=== PATIENT | female | born 2000 | race Hispanic/Latino ===

== ENCOUNTER 2021-02-14 15:00 | Day surgery (SDC) | payer OTHER ==
[2021-02-14 15:35] VITALS: BMI 29.2
[2021-02-14] MEDS ORDERED: hydrALAZINE 20 MG/ML VIAL SLOW IVP PRN (16:04)
== END 2021-02-14 16:16 | disposition home or self-care (01) ==
LOC: CSHLD/OP 15:00
PROVIDERS: ATTEND Family Medicine
DX: O26.853 Spotting complicating pregnancy, third trimester (principal); O99.891 Other specified diseases and conditions complicating pregnancy; N89.8 Other specified noninflammatory disorders of vagina; Z3A.36 36 weeks gestation of pregnancy
CPT/HCPCS: 99282

== ENCOUNTER 2021-02-27 11:54 | Inpatient (IN) | payer OTHER ==
[~2021-02-27 11:54] MED LIST: Bupivacaine 0.25% HCL 30 ML VIAL ONE
[2021-02-27 12:25] VITALS: BMI 30.5
[2021-02-27] MEDS ORDERED: hydrALAZINE 20 MG/ML VIAL SLOW IVP PRN ×2 (12:48→14:48)
[2021-02-27] MEDS: Lactated Ringer's 1,000 ML IV SCH ×2 (14:28→23:41)
[2021-02-27] MEDS ORDERED: Methylergonovine 0.2 MG/ML VIAL IM PRN (14:48)
[2021-02-27] MEDS ORDERED: Misoprostol 200 MCG TAB PR PRN (14:48)
[2021-02-27] MEDS ORDERED: Ibuprofen 800 MG TAB PO PRN (14:48)
[2021-02-27] MEDS ORDERED: NS / Oxytocin 40 units/1000ml 1,000 ML IV PRN (14:48)
[2021-02-27] MEDS ORDERED: Promethazine HCl 25 MG/ML VIAL IM PRN (14:48)
[2021-02-27] MEDS ORDERED: Butorphanol Tartrate 1 MG/ML VIAL SLOW IVP PRN (14:48)
[2021-02-27] MEDS ORDERED: Carboprost 250 MCG/ML AMP IM PRN (14:48)
[2021-02-27] MEDS ORDERED: Diphenoxylate HCl/Atropine Tablet PO PRN (14:48)
[2021-02-27] MEDS ORDERED: HYDROcodone/Acetaminophen 5/325 mg Tablet PO PRN (14:48)
[2021-02-27] MEDS ORDERED: Lidocaine 1% (PF) 30 ML VIAL SC PRN (14:48)
[2021-02-27] MEDS ORDERED: Ondansetron PF 4 MG/2 ML Vial IVP PRN (14:48)
[2021-02-27] MEDS ORDERED: Misoprostol 100 MCG TAB ONE (15:16)
[2021-02-27 15:19] LABS: Hemoglobin 10.9 g/dL (12.0-15.5); Mean Corpuscular HGB CONC 32.6 g/dL (32.0-36.0); Mean Corpuscular Hemoglobin 27.2 pg (27.0-33.0); Mean Corpuscular Volume 83.3 fl (81.6-98.3); Mean Platelet Volume 10.8 fl (7.4-10.4); Platelet Count 295 10x3/uL (150-450); RBC Distribution Width 15.2 % (11.5-14.5); Red Blood Cell (RBC) Count 4.01 10x6/uL (3.90-5.03); White Blood Cell (WBC) Count 6.4 10x3/uL (3.5-10.5)
[2021-02-27] MEDS: Misoprostol 100 MCG TAB PO SCH ×2 (15:32→22:37)
[2021-02-27 15:44] LABS: Hep B Surf Ag Non-Reactive S/CO (NonReactive)
[2021-02-27 15:45] LABS: Syphilis Antibody Nonreactive (Nonreactive); Syphilis Antibody Index 0.02 S/CO (<1.00 Non-Reactive)
[2021-02-27 16:07] LABS: HBSAg Index 0.16 S/CO (0-0.99)
[2021-02-27] MEDS ORDERED: Fentanyl 4 mcg/Bup 0.1% Cadd 100 ML ONE (22:53)
[2021-02-27] MEDS ORDERED: Fentanyl 100 MCG/2 ML VIAL ONE (23:22)
[2021-02-28 01:16] LABS: SARS-CoV-2 PCR by NAA Not Detected (NotDetected)
[2021-02-28] MEDS ORDERED: NS w/ Oxytocin 30 units 500 ML ONE ×2 (02:11→07:34)
[2021-02-28] MEDS ORDERED: Eucerin (Mineral Oil/Petrolatum,White) 30 gm Jar TOP PRN (02:17)
[2021-02-28] MEDS ORDERED: Ondansetron PF 4 MG/2 ML Vial IVP PRN ×2 (02:17→08:59)
[2021-02-28] MEDS ORDERED: ePHEDrine 50 MG/ML VIAL SLOW IVP PRN (02:17)
[2021-02-28] MEDS ORDERED: Promethazine HCl 25 MG/ML VIAL IM PRN ×2 (02:17→08:59)
[2021-02-28] MEDS ORDERED: Lactated Ringer's 500 ML IV PRN (02:17)
[2021-02-28] MEDS ORDERED: Acetaminophen 325 MG TAB PO PRN (02:17)
[2021-02-28] MEDS ORDERED: Naloxone HCl 0.4 mg/ml Vial IVP PRN ×2 (02:17)
[2021-02-28] MEDS ORDERED: diphenhydrAMINE 50 MG/ML VIAL IVP PRN (02:17)
[2021-02-28] MEDS ORDERED: Communication Order-Pharmacy FS SCH (02:30)
[2021-02-28] MEDS ORDERED: Fentanyl 4 mcg/Bupivacaine 0.1% Cassette 100 ML EPIDURAL SCH (02:30)
[2021-02-28] MEDS ORDERED: hydrALAZINE 20 MG/ML VIAL SLOW IVP PRN (08:59)
[2021-02-28] MEDS ORDERED: diphenhydrAMINE 25 MG CAP PO PRN (08:59)
[2021-02-28] MEDS ORDERED: Bisacodyl 10 MG SUPP PR PRN (08:59)
[2021-02-28] MEDS ORDERED: Adacel (T-DAP) 0.5 ML SYRINGE IM ONE (08:59)
[2021-02-28] MEDS ORDERED: Milk Of Magnesia 30 ML UDCUP PO PRN (08:59)
[2021-02-28] MEDS ORDERED: HYDROcodone/Acetaminophen 5/325 mg Tablet PO PRN ×2 (08:59)
[2021-02-28] MEDS ORDERED: NS w/ Oxytocin 30 units 500 ML IVPB SCH ×2 (09:00→09:30)
[2021-02-28] MEDS ORDERED: Ferrous Sulfate 325 MG TAB PO SCH (09:30)
[2021-02-28] MEDS ORDERED: Boostrix 0.5 ML (Tdap) VIAL IM ONE (09:30)
[2021-02-28] MEDS: Ibuprofen 800 MG TAB PO SCH ×2 (14:08→22:10)
[2021-02-28] MEDS: Prenatal Vitamin 1 TAB PO SCH (14:10)
[2021-02-28] MEDS: Docusate Calcium (SURFAK) 240 MG CAP PO SCH ×2 (14:10→22:10)
[2021-02-28] MEDS: Ferrous Sulfate 325 MG TAB PO SCH (18:35)
[2021-03-01] MEDS: Ibuprofen 800 MG TAB PO SCH (05:48)
[2021-03-01 07:51] VITALS: BP 117/82; TEMP 98.3
[2021-03-01] MEDS: NS w/ Oxytocin 30 units 500 ML IVPB SCH ×3 (08:27→08:29)
[2021-03-01] MEDS: Ferrous Sulfate 325 MG TAB PO SCH (08:30)
[2021-03-01] MEDS: Docusate Calcium (SURFAK) 240 MG CAP PO SCH (08:46)
[2021-03-01] MEDS: Prenatal Vitamin 1 TAB PO SCH (08:46)
[2021-03-01] MEDS: Misoprostol 100 MCG TAB PO SCH (08:48)
[2021-03-01] MEDS: Lactated Ringer's 1,000 ML IV SCH (08:48)
== END 2021-03-01 13:45 | disposition home or self-care (01) | DRG 806 ==
LOC: CSHLD/OP 11:54 → CSHLD 17:36 → CSHPP 02-28 09:22
PROVIDERS: ADMIT Family Medicine; ATTEND Family Medicine
PROC: 10E0XZZ Delivery of Products of Conception, External Approach (ICD-10-PCS; principal; 2021-02-28)
PROC: 3E0P7VZ Introduction of Hormone into Female Reproductive, Via Natural or Artificial Opening (ICD-10-PCS; 2021-02-28)
PROC: 3E033VJ Introduction of Other Hormone into Peripheral Vein, Percutaneous Approach (ICD-10-PCS; 2021-02-28)
DX: O76 Abnormality in fetal heart rate and rhythm complicating labor and delivery (principal); O41.03X0 Oligohydramnios, third trimester, not applicable or unspecified; Z37.0 Single live birth; O69.1XX0 Labor and delivery complicated by cord around neck, with compression, not applicable or unspecified; Z20.822 Contact with and (suspected) exposure to COVID-19; Z3A.38 38 weeks gestation of pregnancy
CPT/HCPCS: 51702; 76819; 85027; 86780; 86850; 86900; 86901; 87340; 87635; 99285; J0595; J2590; S0020; U0003; U0005

== ENCOUNTER 2024-03-02 18:47 | Inpatient (IN) | payer OTHER ==
[2024-03-02] MEDS ORDERED: hydrALAZINE 20 MG/ML VIAL SLOW IVP PRN ×2 (19:21→22:01)
[2024-03-02 19:46] LABS: Bilirubin Neg (Negative); Blood, Urine Negative (Negative); Clarity Clear (Clear); Glucose, Urine (Dipstick) Normal (Negative); Ketone, Urine Negative (Negative); Leukocyte Negative (Negative); Nitrite Negative (Negative); Protein, Urine (Dipstick) Negative (Neg-Trace); Specific Gravity, Urine 1.005 (1.005-1.030); Urobilinogen Normal mg/dL (Less than 2)
[2024-03-02] MEDS: Acetaminophen 500 MG TAB PO SCH (19:49)
[2024-03-02 20:05] LABS: Bacteria/HPF Rare-Few HPF (None Seen); CAUTI Indications for Culture Pregnancy; RBC/HPF None Seen HPF (0-3); Squamous Epithelial 0-3 HPF (0-3); WBC/HPF None Seen HPF (0-3)
[2024-03-02 20:06] LABS: Urine Culture Reflex Yes Yes
[2024-03-02 20:15] LABS: #Basophils 0.03 10x3/uL (0.0-0.2); #Eosinphils 0.04 10x3/uL (0.0-0.5); #Monocytes 0.43 10x3/uL (0.0-1.1); #Neutrophils 6.47 10x3/uL (1.5-8.4); %Basophils 0.3 % (0.0-2.0); %Eosinophils 0.4 % (0.0-6.0); %Lymphocytes 29.1 % (18.0-47.0); %Monocytes 4.4 % (0.0-10.0); %Neutrophils 65.5 % (40.0-75.0); Hematocrit 33.2 % (34.9-44.5); Hemoglobin 11.2 g/dL (12.0-15.5); Mean Corpuscular HGB CONC 33.7 g/dL (32.0-36.0); Mean Corpuscular Hemoglobin 28.4 pg (27.0-33.0); Mean Corpuscular Volume 84.1 fl (81.6-98.3); Mean Platelet Volume 9.7 fl (7.4-10.4); Platelet Count 316 10x3/uL (150-450); RBC Distribution Width 13.9 % (11.5-14.5); Red Blood Cell (RBC) Count 3.95 10x6/uL (3.90-5.03); White Blood Cell (WBC) Count 9.9 10x3/uL (3.5-10.5)
[2024-03-02 20:27] LABS: Amphetamine Not Detected (NotDetected); Barbiturates Screen Not Detected (NotDetected); Benzodiazepine Screen Not Detected (NotDetected); Cocaine Metabolite Screen Not Detected (NotDetected); Methadone Not Detected (NotDetected); Methamphetamine Not Detected (NotDetected); Opiate Screen Not Detected (NotDetected); Oxycodone Screen Not Detected (NotDetected); Phencyclidine (PCP) Not Detected (NotDetected); THC/Cannabinoid Screen Not Detected (NotDetected); Tricyclic Screen Not Detected (NotDetected)
[2024-03-02 20:28] LABS: ALT (SGPT) 14 U/L (8-55); AST (SGOT) 17 U/L (5-34); Albumin 3.1 g/dL (3.5-5.0); Alkaline Phosphatase 95 U/L (40-110); Anion Gap 13 mmol/L (10-20); BUN (Urea Nitrogen) 9 mg/dL (7.0-18.7); Bilirubin, Total 0.3 mg/dL (0.2-1.2); Calc. Creatinine Clearance 166 mL/min (70-130); Calcium 9.6 mg/dL (7.8-10.44); Carbon Dioxide 23 mmol/L (22-29); Chloride 104 mmol/L (98-107); Estimated GFR 127; Globulin 4.2 g/dL (2.4-3.5); Glucose 85 mg/dL (70-105); Potassium 3.7 mmol/L (3.5-5.1); Protein, Total 7.3 g/dL (6.0-8.3); Sodium 136 mmol/L (136-145)
[2024-03-02 20:49] LABS: Creatinine, Urine 31.14 mg/dL (47-110); Protein, Urine Random Quant Less than 10 mg/dL (1-14)
[2024-03-02] MEDS ORDERED: Misoprostol 200 MCG TAB PR PRN (22:01)
[2024-03-02] MEDS ORDERED: Methylergonovine 0.2 MG/ML VIAL IM PRN (22:01)
[2024-03-02] MEDS ORDERED: Carboprost 250 MCG/ML AMP IM PRN (22:01)
[2024-03-02] MEDS ORDERED: Diphenoxylate HCl/Atropine Tablet PO PRN (22:01)
[2024-03-02] MEDS ORDERED: Lidocaine 1% (PF) 30 ML VIAL SC PRN (22:01)
[2024-03-02] MEDS ORDERED: Ondansetron PF 4 MG/2 ML Vial IVP PRN (22:01)
[2024-03-02] MEDS ORDERED: Tranexamic Acid 1,000 MG/10 ML VIAL IVP PRN (22:01)
[2024-03-02] MEDS ORDERED: Promethazine HCl 25 MG/ML VIAL IM PRN (22:01)
[2024-03-02] MEDS ORDERED: HYDROcodone/Acetaminophen 5/325 mg Tablet PO PRN (22:08)
[2024-03-02] MEDS ORDERED: Oxytocin 30 units/NS 500 ML 500 ML IV SCH (22:15)
[2024-03-02 22:34] VITALS: BMI 31.1
[2024-03-02 22:42] LABS: Hematocrit 31.9 % (34.9-44.5); Mean Corpuscular HGB CONC 34.5 g/dL (32.0-36.0); Mean Corpuscular Hemoglobin 28.2 pg (27.0-33.0); Mean Corpuscular Volume 81.8 fl (81.6-98.3); Mean Platelet Volume 9.7 fl (7.4-10.4); Platelet Count 318 10x3/uL (150-450); RBC Distribution Width 13.7 % (11.5-14.5); White Blood Cell (WBC) Count 9.6 10x3/uL (3.5-10.5)
[2024-03-02] MEDS: Misoprostol 100 MCG TAB VAG SCH (22:58)
[2024-03-02 23:21] LABS: Syphilis Antibody Nonreactive (Nonreactive); Syphilis Antibody Index 0.04 S/CO (<1.00 Non-Reactive)
[2024-03-02 23:22] LABS: Hep B Surf Ag - L&D Non-Reactive S/CO (NonReactive)
[2024-03-03] MEDS: Acetaminophen 500 MG TAB PO PRN (05:36)
[2024-03-03] MEDS: Lactated Ringer's 1,000 ML IV SCH (05:38)
[2024-03-03] MEDS ORDERED: Ibuprofen 800 MG TAB PO PRN (07:49)
[2024-03-03] MEDS: Ibuprofen 800 MG TAB PO PRN (07:55)
[2024-03-03] MEDS: fentaNYL 50 mcg/mL 1 mL Vial SLOW IVP PRN (08:45)
== END 2024-03-03 18:25 | disposition home or self-care (01) | DRG 807 ==
LOC: CSHLD/OP 18:47 → CSHLD 23:47 → OBSVTOIN 23:48
PROVIDERS: ADMIT Family Medicine; ATTEND Family Medicine
PROC: 10E0XZZ Delivery of Products of Conception, External Approach (ICD-10-PCS; principal; 2024-03-02)
PROC: 3E033VJ Introduction of Other Hormone into Peripheral Vein, Percutaneous Approach (ICD-10-PCS; 2024-03-02)
DX: O36.4XX0 Maternal care for intrauterine death, not applicable or unspecified (principal); Z37.1 Single stillbirth; Z3A.21 21 weeks gestation of pregnancy
CPT/HCPCS: 36415; 76815; 80053; 80306; 81001; 82570; 84156; 85025; 86780; 86850; 86900; 86901; 87086; 87340; 88305; J3010; J7120